=== PATIENT | female | born 1995 | race Caucasian/White ===

== ENCOUNTER 2017-09-14 17:42 | Emergency (ER) | payer OTHER, BC ==
[2017-09-14 17:42] VITALS: BMI 40.2
[2017-09-14 18:07] VITALS: BP 121/62; PULSE 81; RESP 18; TEMP 98.6; O2SAT 100
[2017-09-14] MEDS ORDERED: Naproxen 500 MG TAB PO ONE (18:46)
[2017-09-14] MEDS: Naproxen 500 MG TAB PO STA (18:53)
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
== END 2017-09-14 18:55 | disposition home or self-care (01) ==
LOC: H.ER 17:42
DX: S16.1XXA Strain of muscle, fascia and tendon at neck level, initial encounter (principal); V43.52XA Car driver injured in collision with other type car in traffic accident, initial encounter; Y92.410 Unspecified street and highway as the place of occurrence of the external cause; Z79.84 Long term (current) use of oral hypoglycemic drugs